=== PATIENT | male | born 1995 | race African-American/Black ===

== ENCOUNTER 2023-03-14 05:31 | Emergency (ER) | payer OTHER ==
[~2023-03-14] VITALS: Ht 172.7 cm; Wt 75.0 kg
[2023-03-14] MEDS ORDERED: IBUP-1729 PO (05:36)
[2023-03-14] MEDS ORDERED: IBUPROFEN 600MG TAB PO ONE (07:05)
[2023-03-14] MEDS ORDERED: LIDOCAINE VISCOUS 2% SOLN 15ML UDC SSP ONE (07:05)
[2023-03-14] MEDS ORDERED: LIDVISCBTL PO (07:11)
[2023-03-14] MEDS ORDERED: IBUP-1022 PO (07:11)
[2023-03-14 07:23] VITALS: BP 134/77
== END 2023-03-14 07:26 | disposition home or self-care (01) ==
LOC: M ED 05:31 → EDBD 05:31 → M ED 07:26
DX: K08.89 Other specified disorders of teeth and supporting structures (principal)